=== PATIENT | female | born 2000 | race Caucasian/White ===

== ENCOUNTER 2019-09-03 12:02 | Emergency (ER) | payer BC ==
[2019-09-03 12:10] VITALS: BP 116/79
--- NOTE | 2019-09-03 12:41 | ER Document Report ---
ED Medical Screen (RME) - General Chief Complaint: Psych Problem Stated Complaint: PSYCH EVAL Time Seen by Provider: 09/03/19 12:31 Mode of Arrival: Ambulatory Information source: Patient Notes: 19-year-old female patient with history of anxiety, depression and PTSD presenting to the emergency department with concern for suicidal ideations. Patient reports she feels that she needs her medications adjusted. She states that she often thinks about suicide while she is driving. She states that she thinks about drinking the wheel so that she pulls into oncoming traffic. She also reports self-harm via lack of eating and or pulling off her fingernails. She does report a history of cutting however she states she has not cut in approximately 4 years. She is calm and cooperative. She is also concerned she may have bipolar or schizophrenia as she states this runs in her family and states she has been seeing things lately. I have greeted and performed a rapid initial assessment of this patient. A comprehensive ED assessment and evaluation of the patient, analysis of test results and completion of the medical decision making process will be conducted by additional ED providers. I have specifically instructed the patient or family members with the patient to immediately return to any nursing staff should anything change in the patient's condition or with their chief complaint. - Related Data Allergies/Adverse Reactions: No Known Allergies Allergy (Verified 09/03/19 12:36) Physical Exam - Vital signs Vitals: Temp Pulse Resp BP Pulse Ox 98.5 F 79 20 116/79 100 09/03/19 12:08 09/03/19 12:08 09/03/19 12:08 09/03/19 12:08 09/03/19 12:08 Course - Vital Signs Vital signs: Temp Pulse Resp BP Pulse Ox 98.5 F 79 20 116/79 100 09/03/19 12:08 09/03/19 12:08 09/03/19 12:08 09/03/19 12:08 09/03/19 12:08
[2019-09-03 13:34] LABS: APPEARANCE,URINE CLEAR; BILIRUBIN,URINE NEGATIVE (NEGATIVE); COLOR,URINE YELLOW; GLUCOSE, URINE NEGATIVE (NEGATIVE); KETONES,URINE NEGATIVE (NEGATIVE); LEUKOCYTE ESTERASE,URINE NEGATIVE (NEGATIVE); NITRITE,URINE NEGATIVE (NEGATIVE); PROTEIN,URINE NEGATIVE (NEGATIVE); UROBILINOGEN,URINE NEGATIVE mg/dL (<2.0)
[2019-09-03 13:37] LABS: ABSOLUTE LYMPHOCYTES (AUTO) 1.4 10^3/uL (0.5-4.7); ABSOLUTE MONOCYTES (AUTO) 0.3 10^3/uL (0.1-1.4); ABSOLUTE NEUT (AUTO) 1.9 10^3/uL (1.7-8.2); HEMATOCRIT 38.5 % (36.0-47.0); HEMOGLOBIN 13.1 g/dL (12.0-15.5); LYMPHOCYTES % (AUTO) 38.6 % (13-45); MEAN CORPUSCULAR HGB CONC 33.9 g/dL (32.0-36.0); MEAN CORPUSCULAR VOLUME 88 fl (80-97); MONOCYTES % (AUTO) 7.3 % (3-13); PLATELET COUNT 242 10^3/uL (150-450); RED BLOOD COUNT 4.36 10^6/uL (3.72-5.28); SEGMENTED NEUTROPHILS % (AUTO) 52.1 % (42-78); TOTAL CELLS COUNTED % (AUTO) 100 %; WHITE BLOOD COUNT 3.7 10^3/uL (4.0-10.5)
[2019-09-03 13:47] LABS: ACETAMINOPHEN < 10 ug/mL (10-30); ALBUMIN 4.3 g/dL (3.5-5.0); ALCOHOL < 10 mg/dL (NONE DETECTED); ALKALINE PHOSPHATASE 87 U/L (38-126); ANION GAP 12 (5-19); ASPARTATE AMINO TRANSFERASE 21 U/L (14-36); BILIRUBIN,DIRECT 0.2 mg/dL (0.0-0.4); BILIRUBIN,TOTAL 0.6 mg/dL (0.2-1.3); BLOOD UREA NITROGEN 15 mg/dL (7-20); CALCIUM 9.3 mg/dL (8.4-10.2); CARBON DIOXIDE 24 mmol/L (22-30); CHLORIDE 103 mmol/L (98-107); GLUCOSE 84 mg/dL (75-110); POTASSIUM 4.4 mmol/L (3.6-5.0); SALICYLATE < 1.0 mg/dL (2.0-20.0); TOTAL PROTEIN 7.6 g/dL (6.3-8.2)
[2019-09-03 14:19] LABS: URINE AMPHETAMINES SCREEN NEGATIVE; URINE BARBITURATES SCREEN NEGATIVE; URINE BENZODIAZEPINES SCREEN NEGATIVE; URINE COCAINE SCREEN NEGATIVE; URINE MARIJUANA (THC) SCREEN NEGATIVE; URINE METHADONE SCREEN NEGATIVE; URINE PHENCYCLIDINE SCREEN NEGATIVE
--- NOTE | 2019-09-03 14:26 | EKG REPORT ---
SEVERITY:- NORMAL ECG - SINUS RHYTHM : Confirmed by: Irena Calvillo 03-Sep-2019 14:25:29
--- NOTE | 2019-09-03 14:58 | PSYCHOLOGICAL NOTE ---
Psych Note - Psych Note Date seen by psych provider: 09/03/19 Time seen by psych provider: 02:05 Psych Note: Reason For Consult: Medication recommendations Consent Permissions:none provided Patient is alert and orientated to person, place, time and circumstance. Mood is euthymic with congruent affect. Patient denies suicidal and homicidal ideation. Discloses thoughts of engaging in self harm; pulling nails, picking scabs. History of cutting but has not engaged in 4 years. Delusions are currently absent and behaviors congruent with an intact reality based presentation ie organized and linear thought process. Eye contact is well- maintained. Conversational speech is within normal rate, tone and prosody. Intellectual abilities appear to be within the average range. Attention and concentration are good. Insight, judgment, impulse control are fair. Medication recommendations per [facility]'s contracted psychiatrist Dr. Arabella EPPERSON are as follows Stop home psychiatric medications of Klonipin and prozac zyprexa 2.5mg twice daily Buspar 5mg twice daily Impression\plan:Patient is cleared from acute psychiatric services. Medication recommendations have been provided. Patient has an intake appointment with [facility] Sunday09/09/[address] Thibodeaux was consulted to care management of this patient; attending physicians in agreement with recommendations and disposition.
--- NOTE | 2019-09-03 15:23 | ER Document Report ---
ED General - General Chief Complaint: Other Stated Complaint: PSYCH EVAL Time Seen by Provider: 09/03/19 12:31 Primary Care Provider: MAURA HOUSTON [Primary Care Provider] - Follow up as needed Mode of Arrival: Ambulatory TRAVEL OUTSIDE OF THE [place] IN LAST 30 DAYS: No - HPI Notes: 19-year-old female seen for evaluation of depressive symptoms. Patient has had some vague thoughts about harming herself although she does not have any specific plan. States she has not attempted suicide anytime in the past. 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 Currently taking as needed clonazepam and Prozac. Denies any history of drug or alcohol abuse. Denies auditory or visual hallucinations. No other significant medical history. - Related Data Allergies/Adverse Reactions: No Known Allergies Allergy (Verified 09/03/19 12:36) Home Medications: clonazepam, prozac Past Medical History - General Information source: Patient - Social History Smoking Status: Never Smoker Chew tobacco use (# tins/day): No Frequency of alcohol use: Social Drug Abuse: None Family History: Reviewed & Not Pertinent Patient has suicidal ideation: Yes Patient has homicidal ideation: No Psychiatric Medical History: Reports: Hx Depression Review of Systems - Review of Systems Notes: Constitutional: Negative for fever. HENT: Negative for sore throat. Eyes: Negative for visual changes. Cardiovascular: Negative for chest pain. Respiratory: Negative for shortness of breath. Gastrointestinal: Negative for abdominal pain, vomiting or diarrhea. Genitourinary: Negative for dysuria. Musculoskeletal: Negative for back pain. Skin: Negative for rash. Neurological: Negative for headaches, weakness or numbness. 10 point ROS negative except as marked above and in HPI. Physical Exam - Vital signs Vitals: Temp Pulse Resp BP Pulse Ox 98.5 F 79 20 116/79 100 09/03/19 12:08 09/03/19 12:08 09/03/19 12:08 09/03/19 12:08 09/03/19 12:08 - Notes Notes: GENERAL: Slender female appearing approximately stated age with flat affect, otherwise in no distress. SKIN: Good turgor no rashes. HEAD: Normocephalic atraumatic. EYES: PERRLA. EOMI. Conjunctivae and sclerae clear. EARS: CANALS AND TMS CLEAR. NOSE: CLEAR. MOUTH: Moist mucosa. Good dentition. No stridor or edema. No drooling. NECK: Supple. No masses or thyromegaly. No adenopathy. Carotids 2+ without bruits. No JVD. BACK: Symmetrical without tenderness. CHEST: Respirations unlabored. Breath sounds clear and symmetrical. HEART: Regular rhythm. No murmur gallop or rub. ABDOMEN: Soft nontender without masses, organomegaly or rebound. Bowel sounds normally active. No bruits. GENITALIA: Deferred. EXTREMITIES: No edema. No calf tenderness. Cap refill less than 1.5 seconds. Dorsalis pedis and posterior tibial pulses 3+ and symmetrical. NEUROLOGICAL: GCS 15. Alert and oriented x3. Normal gait. Fluent speech. Cranial nerves II through XII intact. Sensorimotor and cerebellar normal. Normal tone. PSYCHIATRIC: Flat affect. Course - Re-evaluation Re-evalutation: 09/03/19 15:21 Medical evaluation is unremarkable. While this patient has had some fleeting thoughts about suicide she has not formulated any specific plan that I can ascertain. Psychiatry consultation notes have been reviewed and I am in agreement with their management plan for outpatient follow-up and change in medication. We will write new prescriptions for BuSpar and Zyprexa and asked that she discontinue current medications. - Vital Signs Vital signs: Temp Pulse Resp BP Pulse Ox 98.5 F 79 20 116/79 100 09/03/19 12:08 09/03/19 12:08 09/03/19 12:08 09/03/19 12:08 09/03/19 12:08 - Laboratory Result Diagrams: 09/03/19 13:00 09/03/19 13:00 Laboratory results interpreted by me: 09/03/19 09/03/19 13:00 13:00 WBC 3.7 L Salicylates < 1.0 L Acetaminophen < 10 L Discharge - Discharge Clinical Impression: Major depression, chronic, PTSD (post-traumatic stress disorder) Condition: Stable Disposition: HOME, SELF-CARE Additional Instructions: Follow-up with mental health provider as directed. Discontinue current medications. Prescriptions for new medications have been written today. Return here as needed for new or worsening symptoms. Prescriptions: Buspirone HCl [Buspar 10 mg Tablet] 5 mg PO BID 10 Days #20 tablet Olanzapine [Zyprexa 2.5 Mg Tablet] 2.5 mg PO BID 10 Days #20 tablet Referrals: [facility],NO [Primary Care Provider] - Follow up as needed
== END 2019-09-03 15:39 | disposition home or self-care (01) ==
LOC: ER 12:02
DX: F33.2 Major depressive disorder, recurrent severe without psychotic features (principal); F43.10 Post-traumatic stress disorder, unspecified; Z79.899 Other long term (current) drug therapy
CPT/HCPCS: 36415; 80053; 80307; 81001; 85025; 93005; 93010; 99285